=== PATIENT | female | born 1950 | race Caucasian/White ===

== ENCOUNTER 2022-01-15 11:20 | Day surgery (SDC) | payer MEDICARE, OTHER ==
[~2022-01-15] VITALS: Ht 160 cm; Wt 95.5 kg
[~2022-01-15 11:20] MED LIST: BUPROPION HCL150 M2 PO; CEPHALEXIN500 MG PO; CITALOPRAM HBR40 MG PO; FLONASE ALLERG9.9 ML NS; KEFLEX500 MG PO; LEVOTHYROXINE100 MCG PO; NORCO 5-325 TA1 EACH PO
[2022-01-15] MEDS ORDERED: DULOXETINE HCL60 MG PO (11:48)
[2022-01-15] MEDS ORDERED: FUROSEMIDE20 MG PO (11:49)
[2022-01-15] MEDS ORDERED: KLOR-CON 1010 MEQ PO (11:49)
--- NOTE | 2022-01-15 13:14 | NUR ---
01/15/22 1314 Sheets,Jennifer 1307 PT ARRIVED TO PACU ON 3L VIA NC, VSS. PT WAKES AND DENIES CONCERNS AND EASILY FALLS BACK TO SLEEP.
--- NOTE | 2022-01-16 17:13 | PATH ---
[facility] [address] [place], [place] [address] Signed SPECIMEN(S): A SIGMOID BIOPSY SPECIMEN(S): B SIGMOID POLYP SPECIMEN SOURCE: A. SIGMOID BIOPSY B. SIGMOID POLYP CLINICAL HISTORY: Colonoscopy. Chronic constipation, bloating. FINAL PATHOLOGIC DIAGNOSIS: A. Colon, sigmoid, biopsy: - Colonic mucosa with no histopathologic abnormality. - Negative for dysplasia or malignancy. B. Colon, sigmoid, polyp, polypectomy: - Fragments of colonic mucosa with no histopathologic abnormality. - Negative for dysplasia or malignancy. COMMENT: Multiple additional deeper levels of the sigmoid polyp (specimen B) were examined. NAL:cml:C2NR MICROSCOPIC EXAMINATION: Histologic sections of all submitted blocks are examined by light microscopy. These findings, together with the gross examination, support the pathologic diagnosis. GROSS DESCRIPTION: Two specimens are received in two containers, labeled "CJ." A. The specimen, labeled "CJ, sigmoid colon #1," is received in formalin and consists of two dykes soft tissue fragments that measure 0.3 cm in greatest dimension. The specimen is entirely submitted in cassette (A1). B. The specimen, labeled "CJ, sigmoid polyps #2," is received in formalin and consists of two dykes soft tissue fragments that measure 0.3 cm in greatest dimension. The specimen is entirely submitted in cassette (B1). AT (under the direct supervision of a pathologist) The Gross Description was prepared using a voice recognition system. The report was reviewed for accuracy; however, sound-alike word errors, addition and/or PATIENT NAME: ROSALES RESENDIZ PATHOLOGY DATE OF : 46 REPORT #: [id number] PHYSICIAN: GIO LOVE PCP: SHAHEEN TABARES PAC REPORT IS CONFIDENTIAL AND NOT TO BE RELEASED WITHOUT AUTHORIZATION [facility] [address] [place], [place] [address] Signed deletions may occur. If there is any question about this report, please contact Client Services. PERFORMING LABORATORY: The technical component was [place] [address] (Business Department Chair: Yanely Hickey MD; CLIA# [id number]). Professional interpretation was performed by [employer] [facility], [address] [address] (CLIA# [id number]). Diagnostician: Debra Brown MD Pathologist Electronically Signed 01/16/2022 Copies: ~ PATIENT NAME: ROSALES RESENDIZ PATHOLOGY DATE OF : 46 REPORT #: [id number] PHYSICIAN: GIO LOVE PCP: SHAHEEN TABARES PAC REPORT IS CONFIDENTIAL AND NOT TO BE RELEASED WITHOUT AUTHORIZATION
--- NOTE | 2022-01-18 10:56 | OR ---
[facility] [address] [place], [place] [address] Signed DATE OF OPERATION: 01/15/2022 SURGEON: Rafat Meehan MD PREOPERATIVE DIAGNOSIS: Persistent constipation. POSTOPERATIVE DIAGNOSES: 1. Extensive diverticular disease of sigmoid and left colon. 2. Diminutive polyp of rectosigmoid (excised). PROCEDURES: Total colonoscopy to cecum with cold morcellation polypectomy x1 and biopsy of left colon x1. ANESTHESIA: Intravenous sedation; fentanyl 200 mcg and Versed 7 mg. INDICATION: This 71-year-old obese white woman is a patient of Dr. Shaheen Tabares, is referred for consideration of colonoscopy. She last underwent colonoscopy in 2007. She has chronic constipation. This has been a lifelong problem. She has had no associated blood per rectum or diarrhea and no family history of colon cancer. She self describes history of fibromyalgia. She is admitted at this time to undergo colonoscopy to better characterize her current symptoms, understands the risk of bleeding, infection, and perforation related to colonoscopy. She understands and she wished to proceed. FINDINGS: The prep was good. Complete colonoscopy was undertaken of the cecum without question. She had extensive diverticular changes extending from the distal sigmoid proximally throughout the entire left colon and scattered diverticula more proximally. She showed no evidence of cancer or colitis. There was a probable diminutive polyp of the sigmoid, which was excised as well. There were no other findings of concern. DESCRIPTION OF PROCEDURE: The patient was brought to the endoscopy suite and placed in the lateral decubitus position, given intravenous sedation to the point of slurred speech and nystagmus. Full cardiopulmonary monitoring was undertaken. Digital rectal examination was found to be normal. An Olympus video colonoscope was passed in the rectum and manipulated into the sigmoid. Angulation deformity and profound diverticular changes were noted. With all Electronically Signed By: RAFAT MEEHAN MD 01/18/22 1056 PATIENT NAME: ROSALES RESENDIZ OPERATIVE REPORT DATE OF : 46 REPORT #: [id number] PHYSICIAN: RAAFT MEEHAN MD PCP: SHAHEEN TABARES PAC REPORT IS CONFIDENTIAL AND NOT TO BE RELEASED WITHOUT AUTHORIZATION [facility] [address] [place], [place] [address] Signed due care, ultimately the scope was passed beyond this and with time and abdominal wall stabilization intubation of the right colon with good visualization of the cecum. The scope was withdrawn from that point and examination throughout showed no sign of abnormality other than scattered diverticula including right and transverse colon but also dominantly the left and sigmoid. A biopsy was taken in the mid left colon to assess for occult pathology and another excision of a diminutive appearing polyp of the rectosigmoid undertaken as well. The rectum itself appeared normal. Scope was removed and the patient was taken to the recovery room in good condition. CONCLUDING DIAGNOSES: Constipation, most likely related to significant diverticulosis; diminutive polyp excised of no concern at this time. PLAN: Recommend high-fiber diet and MiraLAX 1 scoop p.o. daily as necessary to maintain good bowel function. . MD SHARLA Hare/ESTER /[id number] cc: Dr. Shaheen Tabares Copies: ~ Electronically Signed By: RAFAT MEEHAN MD 01/18/22 1056 PATIENT NAME: ROSALES RESENDIZ OPERATIVE REPORT DATE OF : 46 REPORT #: [id number] PHYSICIAN: RAFAT MEEHAN MD PCP: SHAHEEN TABARES PAC REPORT IS CONFIDENTIAL AND NOT TO BE RELEASED WITHOUT AUTHORIZATION
== END 2022-01-15 14:17 | disposition home or self-care (01) ==
LOC: OPS 11:20 → DS 11:25 → OPS 13:00
PROVIDERS: ATTEND Surgery
PROC: 0DBG8ZZ Excision of Left Large Intestine, Via Natural or Artificial Opening Endoscopic (ICD-10-PCS; principal; 2022-01-15 13:00)
DX: K59.09 Other constipation (principal); K57.30 Diverticulosis of large intestine without perforation or abscess without bleeding; K63.5 Polyp of colon; M79.7 Fibromyalgia; K21.00 Gastro-esophageal reflux disease with esophagitis, without bleeding
CPT/HCPCS: J2250; J3010; J7121

== ENCOUNTER 2022-05-30 08:15 | Emergency (ER) | payer MEDICARE, OTHER ==
[~2022-05-30] VITALS: Ht 157.5 cm; Wt 90.7 kg
[~2022-05-30 08:15] MED LIST changes: +DULOXETINE HCL60 MG PO; +FUROSEMIDE20 MG PO; +KLOR-CON 1010 MEQ PO
--- OUTSIDE RECORDS SUMMARY | 2022-05-30 08:18 | XMS ---
PreManage Notification: ROSALES RESENDIZ Security Soyfreeze Operator Events No recent Security Events currently on file CRITERIA MET - PDMP - Group Notification CARE PROVIDERS SHAHEEN TABARES Physician Trial Lawyer Current PHONE: Unknown Calderon has no Care Guidelines for this patient. EOlvin VISIT COUNT (12 MO.) 1 MARSHA Trujillo TOTAL 1 NOTE: Visits indicate total known visits. ED/UCC VISIT TRACKING (12 MO.) 05/30/2022 08:16 [facility] [place] TYPE: Emergency COMPLAINT: - SKIN PROBLEM INPATIENT VISIT TRACKING (12 MO.) No inpatient visits to display in this time frame [email or web address]
[2022-05-30] MEDS ORDERED: TIZANIDINE HCL2 MG PO (08:50)
[2022-05-30] MEDS ORDERED: ACETAMINOPHEN-1 EAC1 PO (08:51)
[2022-05-30] MEDS ORDERED: LASIX20 MG PO (11:18)
[2022-05-30] MEDS ORDERED: K-TAB ER20 MEQ PO (11:18)
== END 2022-05-30 11:29 | disposition home or self-care (01) ==
LOC: ED 08:15
DX: R60.0 Localized edema (principal); B36.9 Superficial mycosis, unspecified; E03.9 Hypothyroidism, unspecified; F17.200 Nicotine dependence, unspecified, uncomplicated; Z79.899 Other long term (current) drug therapy
CPT/HCPCS: 36415; 80053; 85025; 99284

== ENCOUNTER 2023-06-05 16:33 | Emergency (ER) | payer MEDICARE, OTHER ==
[~2023-06-05] VITALS: Ht 157.5 cm; Wt 96.2 kg
--- OUTSIDE RECORDS SUMMARY | ~2023-06-05 | XMS | Continuity of Care Document ---
Demographics + + + | Address | [address] | | | [place] [address] | + + + | Preferred Language | Unknown | + + + | Marital Status | | + + + | Sikhism Affiliation | Unknown | + + + | Race | White | + + + | Ethnic Group | Not or | + + + Author + + + | Author | [facility] | + + + | Organization | [facility] | + + + | Address | [address] | | | [place] [address] | + + + | Phone | | + + + Care Team Providers + + + + | Care Senior Instrumentation Engineer Name | Role | Phone | + + + + Unavailable | Unavailable | + + + + Unavailable | Unavailable | + + + + Allergies No information. Encounters No information. Functional Status No information. Immunizations + + + + | date | description | facility | + + + + | 2015-06-29 00:00 | DTaP | [facility] | + + + + Medications + + + + | | description | facility | + + + + | 2022-05-30 00:00 | POTASSIUM CHLORIDE | [facility] | + + + + | 2023-04-11 00:00 | DOXYCYCLINE HYCLATE | [facility] | + + + + | 2022-06-08 00:00 | FLUTICASONE PROPIONATE | [facility] | + + + + | 2023-04-11 00:00 | FLUTICASONE PROPIONATE | [facility] | + + + + | 2022-05-30 00:00 | FUROSEMIDE | [facility] | + + + + | 2016-02-21 00:00 | CEPHALEXIN | [facility] | + + + + | 2015-05-04 00:00 | CEPHALEXIN | [facility] | + + + + | 2022-06-08 00:00 | CITALOPRAM HYDROBROMIDE | [facility] | + + + + | 2023-04-11 00:00 | CITALOPRAM HYDROBROMIDE | [facility] | + + + + | 2022-06-08 00:00 | FUROSEMIDE | [facility] | + + + + | 2023-04-11 00:00 | FUROSEMIDE | [facility] | + + + + | 2022-06-08 00:00 | TIZANIDINE HCL | [facility] | + + + + | 2023-04-11 00:00 | TIZANIDINE HCL | [facility] | + + + + | 2022-06-08 00:00 | DULOXETINE HCL | [facility] | + + + + | 2023-04-11 00:00 | DULOXETINE HCL | [facility] | + + + + | 2022-06-08 00:00 | POTASSIUM CHLORIDE | [facility] | + + + + | 2023-04-11 00:00 | POTASSIUM CHLORIDE | [facility] | + + + + | 2023-04-11 00:00 | HYDROCODONE | [facility] | | | BIT/ACETAMINOPHEN | | + + + + | 2015-05-04 00:00 | HYDROCODONE | [facility] | | | BIT/ACETAMINOPHEN | | + + + + | 2022-06-08 00:00 | LEVOTHYROXINE SODIUM | [facility] | + + + + | 2023-04-11 00:00 | LEVOTHYROXINE SODIUM | [facility] | + + + + | 2022-06-08 00:00 | BUPROPION HCL | [facility] | + + + + | 2023-04-11 00:00 | BUPROPION HCL | [facility] | + + + + | 2022-06-08 00:00 | ACETAMINOPHEN WITH CODEINE | [facility] | | | | | + + + + | 2023-04-11 00:00 | ACETAMINOPHEN WITH CODEINE | [facility] | | | | | + + + + Problems + + + + | date | description | facility | + + + + | 2015-05-04 00:00 | Stasis ulcer of ankle | [facility] | + + + + | 2015-06-29 00:00 | Alcohol abuse | [facility] | + + + + | 2015-06-29 00:00 | Laceration of scalp | [facility] | + + + + | 2015-07-17 00:00 | Encounter for removal of | [facility] | | | lucas | | + + + + | 2016-02-21 00:00 | Cellulitis of right lower | [facility] | | | extremity | | + + + + | 2022-05-30 00:00 | Yeast dermatitis | [facility] | + + + + | 2022-05-30 00:00 | Edema | [facility] | + + + + | 2023-04-11 00:00 | Postoperative cellulitis | [facility] | | | of surgical wound | | + + + + Procedures + + + + | date | description | facility | + + + + | 2022-01-15 00:00 | EXCISION OF LEFT LARGE | [facility] | | | INTESTINE, ENDO | | + + + + | 2022-01-15 00:00 | COLONOSCOPY AND BIOPSY | [facility] | + + + + Results/Labs +--------+--------+ + +---------+--------+ + | test | date | author | facility | value | unit | | | | | | | | | interpreta | | | | | | | | tion | +--------+--------+ + +---------+--------+ + + + | Result panel 1 | + + + + + + +---------+ + + | (unknown) | (no date) | (unknown) | [facility] | (no | (units | (unknown) | | | | [facility] | value) | unknown) | | | | | [facility] | | | | + + + + +---------+ + + + + | Result panel 2 | + + + + + + +---------+ + + | (unknown) | (no date) | (unknown) | [facility] | (no | (units | (unknown) | | | | | [facility] | value) | unknown) | | | | | [facility] | | | | + + + + +---------+ + + + + | Result panel 3 | + + + + + + +---------+ + + | (unknown) | (no date) | (unknown) | [facility] | (no | (units | (unknown) | | | | | [facility] | value) | unknown) | | | | | [facility] | | | | + + + + +---------+ + + + + | Result panel 4 | + + + + + + +---------+ + + | (unknown) | (no date) | (unknown) | [facility] | (no | (units | (unknown) | | | | | [facility] | value) | unknown) | | | | | | [facility] | | | | + + + + +---------+ + + + + | Result panel 5 | + + + + + + +---------+ + + | (unknown) | (no date) | (unknown) | [facility] | (no | (units | (unknown) | | | | | [facility] | value) | unknown) | | | | | | [facility] | | | | + + + + +---------+ + + + + | Result panel 6 | + + + + + + +---------+ + + | (unknown) | (no date) | (unknown) | [facility] | (no | (units | (unknown) | | | | | [facility] | value) | unknown) | | | | | | [facility] | | | | + + + + +---------+ + + + + | Result panel 7 | + + + + + + +---------+ + + | (unknown) | (no date) | (unknown) | [facility] | (no | (units | (unknown) | | | | | [facility] | value) | unknown) | | | | | | [facility] | | | | + + + + +---------+ + + + + | Result panel 8 | + + + + + + +---------+ + + | (unknown) | (no date) | (unknown) | [facility] | (no | (units | (unknown) | | | | | [facility] | value) | unknown) | | | | | | [facility] | | | | + + + + +---------+ + + + + | Result panel 9 | + + + + + + +---------+ + + | (unknown) | (no date) | (unknown) | [facility] | (no | (units | (unknown) | | | | | [facility] | value) | unknown) | | | | | | [facility] | | | | + + + + +---------+ + + + + | Result panel 10 | + + + + + + +---------+ + + | (unknown) | (no date) | (unknown) | [facility] | (no | (units | (unknown) | | | | | [facility] | value) | unknown) | | | | | | [facility] | | | | + + + + +---------+ + + + + | Result panel 11 | + + + + + + +---------+ + + | (unknown) | (no date) | (unknown) | [facility] | (no | (units | (unknown) | | | | | [facility] | value) | unknown) | | | | | | [facility] | | | | + + + + +---------+ + + + + | Result panel 12 | + + + + + + +---------+ + + | (unknown) | (no date) | (unknown) | [facility] | (no | (units | (unknown) | | | | | [facility] | value) | unknown) | | | | | | [facility] | | | | + + + + +---------+ + + + + | Result panel 13 | + + + + + + +---------+ + + | (unknown) | (no date) | (unknown) | [facility] | (no | (units | (unknown) | | | | | [facility] | value) | unknown) | | | | | | [facility] | | | | + + + + +---------+ + + + + | Result panel 14 | + + + + + + +---------+ + + | (unknown) | (no date) | (unknown) | [facility] | (no | (units | (unknown) | | | | | [facility] | value) | unknown) | | | | | | [facility] | | | | + + + + +---------+ + + Social History No information. Vital Signs + + + +---------+ | date | measurement | value | units | + + + +---------+ | 2022-01-15 00:00 | BMI | 37.3 | kg/m2 | + + + +---------+ | 2022-01-15 00:00 | BP_diastolic | 70 | mmHg | + + + +---------+ | 2022-01-15 00:00 | BP_systolic | 165 | mmHg | + + + +---------+ | 2022-01-15 00:00 | heart_rate | 71 | /min | + + + +---------+ | 2022-01-15 00:00 | height_metric | 160.02 | cm | + + + +---------+ | 2022-01-15 00:00 | height_standard | 63 | in | + + + +---------+ | 2022-01-15 00:00 | o2_saturation | 96 | % | + + + +---------+ | 2022-01-15 00:00 | respiration_rate | 16 | /min | + + + +---------+ | 2022-01-15 00:00 | temperature_metric | 36.83 | C | | | | | | + + + +---------+ | 2022-01-15 00:00 | | 98.3 | F | | | temperature_standar | | | | | d | | | + + + +---------+ | 2022-01-15 00:00 | weight_metric | 95.5 | kg | + + + +---------+ | 2022-01-15 00:00 | weight_standard | 210.54 | lb | + + + +---------+ | 2022-05-30 00:00 | BMI | 36.6 | kg/m2 | + + + +---------+ | 2022-05-30 00:00 | BP_diastolic | 58 | mmHg | + + + +---------+ | 2022-05-30 00:00 | BP_systolic | 135 | mmHg | + + + +---------+ | 2022-05-30 00:00 | heart_rate | 67 | /min | + + + +---------+ | 2022-05-30 00:00 | height_metric | 157.48 | cm | + + + +---------+ | 2022-05-30 00:00 | height_standard | 62 | in | + + + +---------+ | 2022-05-30 00:00 | o2_saturation | 97 | % | + + + +---------+ | 2022-05-30 00:00 | respiration_rate | 16 | /min | + + + +---------+ | 2022-05-30 00:00 | temperature_metric | 37 | C | | | | | | + + + +---------+ | 2022-05-30 00:00 | | 98.6 | F | | | temperature_standar | | | | | d | | | + + + +---------+ | 2022-05-30 00:00 | weight_metric | 90.72 | kg | + + + +---------+ | 2022-05-30 00:00 | weight_standard | 200 | lb | + + + +---------+ | 2023-04-11 00:00 | BMI | 36.6 | kg/m2 | + + + +---------+ | 2023-04-11 00:00 | BP_diastolic | 60 | mmHg | + + + +---------+ | 2023-04-11 00:00 | BP_systolic | 143 | mmHg | + + + +---------+ | 2023-04-11 00:00 | heart_rate | 82 | /min | + + + +---------+ | 2023-04-11 00:00 | height_metric | 157.48 | cm | + + + +---------+ | 2023-04-11 00:00 | height_standard | 62 | in | + + + +---------+ | 2023-04-11 00:00 | o2_saturation | 99 | % | + + + +---------+ | 2023-04-11 00:00 | respiration_rate | 17 | /min | + + + +---------+ | 2023-04-11 00:00 | temperature_metric | 36.67 | C | | | | | | + + + +---------+ | 2023-04-11 00:00 | | 98 | F | | | temperature_standar | | | | | d | | | + + + +---------+ | 2023-04-11 00:00 | weight_metric | 90.72 | kg | + + + +---------+ | 2023-04-11 00:00 | weight_standard | 200 | lb | + + + +---------+"
--- OUTSIDE RECORDS SUMMARY | ~2023-06-05 | XMS | Continuity of Care Document ---
Demographics + + + | Address | [address] | | | [place] [address] | + + + | Preferred Language | Unknown | + + + | Marital Status | | + + + | Hoahaoism Affiliation | Unknown | + + + | Race | White | + + + | Ethnic Group | Not or | + + + Author + + + | Author | [facility] | + + + | Organization | [facility] | + + + | Address | [address] | | | [place] [address] | + + + | Phone | | + + + Care Team Providers + + + + | Care Vacuum Furnace Operator Name | Role | Phone | + + + + Unavailable | Unavailable | + + + + Unavailable | Unavailable | + + + + Allergies No information. Encounters No information. Functional Status No information. Immunizations + + + + | date | description | facility | + + + + | 2015-06-29 00:00 | DTaP | [facility] | + + + + Medications + + + + | | description | facility | + + + + | 2022-05-30 00:00 | POTASSIUM CHLORIDE | [facility] | + + + + | 2023-04-11 00:00 | DOXYCYCLINE HYCLATE | [facility] | + + + + | 2022-06-08 00:00 | FLUTICASONE PROPIONATE | [facility] | + + + + | 2023-04-11 00:00 | FLUTICASONE PROPIONATE | [facility] | + + + + | 2022-05-30 00:00 | FUROSEMIDE | [facility] | + + + + | 2016-02-21 00:00 | CEPHALEXIN | [facility] | + + + + | 2015-05-04 00:00 | CEPHALEXIN | [facility] | + + + + | 2022-06-08 00:00 | CITALOPRAM HYDROBROMIDE | [facility] | + + + + | 2023-04-11 00:00 | CITALOPRAM HYDROBROMIDE | [facility] | + + + + | 2022-06-08 00:00 | FUROSEMIDE | [facility] | + + + + | 2023-04-11 00:00 | FUROSEMIDE | [facility] | + + + + | 2022-06-08 00:00 | TIZANIDINE HCL | [facility] | + + + + | 2023-04-11 00:00 | TIZANIDINE HCL | [facility] | + + + + | 2022-06-08 00:00 | DULOXETINE HCL | [facility] | + + + + | 2023-04-11 00:00 | DULOXETINE HCL | [facility] | + + + + | 2022-06-08 00:00 | POTASSIUM CHLORIDE | [facility] | + + + + | 2023-04-11 00:00 | POTASSIUM CHLORIDE | [facility] | + + + + | 2023-04-11 00:00 | HYDROCODONE | [facility] | | | BIT/ACETAMINOPHEN | | + + + + | 2015-05-04 00:00 | HYDROCODONE | [facility] | | | BIT/ACETAMINOPHEN | | + + + + | 2022-06-08 00:00 | LEVOTHYROXINE SODIUM | [facility] | + + + + | 2023-04-11 00:00 | LEVOTHYROXINE SODIUM | [facility] | + + + + | 2022-06-08 00:00 | BUPROPION HCL | [facility] | + + + + | 2023-04-11 00:00 | BUPROPION HCL | [facility] | + + + + | 2022-06-08 00:00 | ACETAMINOPHEN WITH CODEINE | [facility] | | | | | + + + + | 2023-04-11 00:00 | ACETAMINOPHEN WITH CODEINE | [facility] | | | | | + + + + Problems + + + + | date | description | facility | + + + + | 2015-05-04 00:00 | Stasis ulcer of ankle | [facility] | + + + + | 2015-06-29 00:00 | Alcohol abuse | [facility] | + + + + | 2015-06-29 00:00 | Laceration of scalp | [facility] | + + + + | 2015-07-17 00:00 | Encounter for removal of | [facility] | | | lucas | | + + + + | 2016-02-21 00:00 | Cellulitis of right lower | [facility] | | | extremity | | + + + + | 2022-05-30 00:00 | Yeast dermatitis | [facility] | + + + + | 2022-05-30 00:00 | Edema | [facility] | + + + + | 2023-04-11 00:00 | Postoperative cellulitis | [facility] | | | of surgical wound | | + + + + Procedures + + + + | date | description | facility | + + + + | 2022-01-15 00:00 | EXCISION OF LEFT LARGE | [facility] | | | INTESTINE, ENDO | | + + + + | 2022-01-15 00:00 | COLONOSCOPY AND BIOPSY | [facility] | + + + + Results/Labs +--------+--------+ [...]
[~2023-06-05 16:33] MED LIST changes: +ACETAMINOPHEN-1 EAC1 PO; +DOXYCYCLINE HY100 MG PO; +HYDROCODON-ACE1 EA10 PO; +K-TAB ER20 MEQ PO; +LASIX20 MG PO; +TIZANIDINE HCL2 MG PO
--- OUTSIDE RECORDS SUMMARY | 2023-06-05 16:36 | XMS ---
PreManage Notification: ROSALES RESENDIZ Security Rivet Heater Events No recent Security Events currently on file CRITERIA MET - Group Notification - PDMP CARE PROVIDERS SHAHEEN TABARES Physician Metal Ceiling Builder Current PHONE: Unknown Calderon has no Care Guidelines for this patient. EOlvin VISIT COUNT (12 MO.) 2 MARSHA Trujillo TOTAL 2 NOTE: Visits indicate total known visits. ED/UCC VISIT TRACKING (12 MO.) 06/05/2023 16:35 [facility] [place] TYPE: Emergency COMPLAINT: - ABD PAIN 04/11/2023 07:54 [facility] [place] TYPE: Emergency COMPLAINT: - R LEG WOUND CHECK DIAGNOSES: - Cellulitis of right lower limb - Hypothyroidism, unspecified - Nicotine dependence, unspecified, uncomplicated - Other fpc (current) drug therapy - Other postprocedural complications of skin and subcutaneous tissue - Other surgical procedures as the cause of abnormal reaction of the patient, or of later complication, without mention of misadventure at the time of the procedure INPATIENT VISIT TRACKING (12 MO.) No inpatient visits to display in this time frame [id number]
[2023-06-05] MEDS ORDERED: DULCOLAX STOOL100 M1 PO (16:57)
[2023-06-05] MEDS ORDERED: LEVOTHYROXINE112 MCG PO (16:57)
[2023-06-05] MEDS ORDERED: HYDROCODON-ACE1 EA10 PO (19:05)
[2023-06-05] MEDS ORDERED: ONDANSETRON ODT8 MG PO (19:05)
[2023-06-05] MEDS ORDERED: AMOX TR-K CLV1 EAC1 PO (19:05)
[2023-06-05 20:36] VITALS: BP 129/70
== END 2023-06-05 20:37 | disposition home or self-care (01) ==
LOC: ED 16:33
DX: K57.32 Diverticulitis of large intestine without perforation or abscess without bleeding (principal); F17.200 Nicotine dependence, unspecified, uncomplicated; Z79.899 Other long term (current) drug therapy; Z79.890 Hormone replacement therapy
CPT/HCPCS: 36415; 74177; 80053; 81003; 83690; 85025; 96375; 99284 25; A9270; J0295; J1170; J2405; J7030; Q9967